=== PATIENT | male | born 1955 | race African-American/Black ===

== ENCOUNTER 2018-05-20 08:33 | Emergency (ER) | payer OTHER ==
[2018-05-20 08:50] VITALS: BP 127/65; PULSE 89; TEMP 98.1; BMI 25.8
[2018-05-20] MEDS ORDERED: ALBUTEROL SO4 2.5/IPRATROPIUM 0.5 INH SOL 3 ML VIAL.NEB. NEB ONE (09:58)
--- NOTE | 2018-05-20 10:03 | PDOC ---
History of Present Illness - General Chief Complaint: Shortness of Breath Stated Complaint: ASTHMA Time Seen by Provider: 05/20/18 09:05 History Source: Patient Exam Limitations: No Limitations - History of Present Illness Initial Comments: 05/20/18 09:59 63-year-old male with history of smoking and asthma presents to the ED for evaluation of dry hacking cough intermittent shortness of breath and wheezing since this week and worsening in severity since this a.m. Patient states has been using his inhaler with good effect until this a.m. Patient denies fever, chills, headache chest pain, or abdominal pain. Timing/Duration: reports: other Severity: reports: mild Possible Cause: Yes: occasional episodes Modifying Factors: improves with: coughing Associated Symptoms: reports: cough, shortness of breath, wheezing Past History - Travel Traveled outside of the country in the last 30 days: Yes Close contact w/someone who was outside of country & ill: No - Past Medical History Allergies/Adverse Reactions: Allergies Allergy/AdvReac Type Severity Reaction Status Date / Time Penicillins Allergy Verified 05/20/18 08:45 Home Medications: Ambulatory Orders Albuterol Sulfate Inhaler - [Ventolin Hfa Inhaler -] 1 - 2 inh PO Q4H 05/20/18 Sitagliptin Phos/Metformin HCl [Janumet 50-500 mg Tablet] 1 each PO ASDIR metFORMIN HCL [Glucophage -] 500 mg PO BID 05/20/18 Asthma: Yes Diabetes: Yes - Suicide/Smoking/Psychosocial Hx Smoking Status: Yes Smoking History: Current every day smoker Number of Cigarettes Smoked Daily: 19 Information on smoking cessation initiated: No Hx Alcohol Use: No Patient Lives Alone: No Lives with/in: spouse/SO Review of Systems - Review of Systems Able to Perform ROS?: Yes Constitutional: No: Symptoms Reported HEENTM: No: Symptoms Reported Respiratory: Yes: Cough, Shortness of Breath, Wheezing Cardiac (ROS): No: Symptoms Reported ABD/GI: No: Symptoms Reported : No: Symptoms Reported Musculoskeletal: No: Symptoms Reported Integumentary: No: Symptoms Reported Endocrine: No: Symptoms Reported Hematologic/Lymphatic: No: Symptoms Reported *Physical Exam - Vital Signs Last Vital Signs Temp Pulse Resp BP Pulse Ox 98.1 F 89 18 127/65 98 05/20/18 08:49 05/20/18 08:49 05/20/18 08:49 05/20/18 08:49 05/20/18 08:49 - Physical Exam General Appearance: Yes: Nourished, Appropriately Dressed. No: Apparent Distress HEENT: positive: EOMI, CARLOS, TMs Normal, Pharynx Normal. negative: Pale Conjunctivae Neck: positive: Supple Respiratory/Chest: positive: Wheezing (mild twin on end expiration). negative: Respiratory Distress, Accessory Muscle Use Cardiovascular: positive: Regular Rhythm, Regular Rate. negative: Murmur Gastrointestinal/Abdominal: positive: Soft. negative: Tenderness Musculoskeletal: positive: CVA Tenderness Extremity: positive: Normal Capillary Refill. negative: Pedal Edema Integumentary: positive: Normal Color, Warm, Moist Neurologic: positive: Motor Strength 5/5 (ambulatory) Moderate Sedation - Procedure Monitoring Vital Signs: Procedure Monitoring Vital Signs Temperature 98.1 F 05/20/18 08:49 Pulse Rate 89 05/20/18 08:49 Respiratory Rate 18 05/20/18 08:49 Blood Pressure 127/65 05/20/18 08:49 O2 Sat by Pulse Oximetry (%) 98 05/20/18 08:49 ED Treatment Course - RADIOLOGY Radiology Studies Ordered: Category Date Time Status CHEST PA & LAT [RAD] Stat Radiology 05/20/18 09:47 Ordered Medical Decision Making - Medical Decision Making 05/20/18 10:10 Complaint: Shortness of breath, cough and wheezing 3 days worsen this a.m. after going outside. Exam: No accessory muscle usage with mild expiratory wheezing bilateral. Vital signs stable Plan: Chest x-ray secondary to history of smoking and age. If negative will discharge home with prednisone since he has an inhaler at home. 05/20/18 10:12 X-ray negative for infiltrate and effusion. Will discharge patient home with prednisone. *DC/Admit/Observation/Transfer Diagnosis at time of Disposition: Asthma - Discharge Dispostion Disposition: HOME Condition at time of disposition: Good - Referrals - Patient Instructions Printed Discharge Instructions: DI for Asthma -- Adult Additional Instructions: Please start prednisone today. Rest carrier inhaler with urine use as needed for wheezing Drink plenty of fluids and rest. - Post Discharge Activity
== END 2018-05-20 10:47 | disposition home or self-care (01) ==
LOC: JER 08:33
PROC: 3E0F7GC Introduction of Other Therapeutic Substance into Respiratory Tract, Via Natural or Artificial Opening (ICD-10-PCS; principal; 2018-05-20)
DX: J45.909 Unspecified asthma, uncomplicated (principal); E11.9 Type 2 diabetes mellitus without complications; Z79.84 Long term (current) use of oral hypoglycemic drugs; F17.210 Nicotine dependence, cigarettes, uncomplicated
CPT/HCPCS: 71046-TC-FY; 99281-25

== ENCOUNTER 2018-07-23 15:55 | Emergency (ER) | payer OTHER ==
[2018-07-23 16:04] VITALS: BP 119/63; PULSE 87; BMI 24.3
[2018-07-23] MEDS ORDERED: ALBUTEROL SO4 2.5/IPRATROPIUM 0.5 INH SOL 3 ML VIAL.NEB. NEB ONE ×2 (16:06→16:07)
--- NOTE | 2018-07-23 16:15 | PDOC ---
Rapid Medical Evaluation Chief Complaint: Asthma Time Seen by Provider: 07/23/18 16:05 Medical Evaluation: Allergies Allergy/AdvReac Type Severity Reaction Status Date / Time Penicillins Allergy Verified 07/23/18 16:05 Vital Signs Temp Pulse Resp BP Pulse Ox 87 22 H 119/63 99 07/23/18 16:03 07/23/18 16:03 07/23/18 16:03 07/23/18 16:03 07/23/18 16:06 The patient presents with a chief complaint of: chest tightness and wheezing, using inhaler with good effect but running low I have performed a brief in-person evaluation of this patient; Pertinent physical exam findings: ambulatory, in no respiratory distress, no wheezing, mild decreased bs to right base I have ordered the following: duoneb The patient will proceed to the ED for further evaluation. Discharge Disposition - Diagnosis Asthma - Referrals - Patient Instructions - Post Discharge Activity
[2018-07-23] MEDS ORDERED: DEXAMETHASONE LIQUID 0.5 MG/5 ML 240 ML BULK BOTTLE PO ONE (16:40)
[2018-07-23] MEDS ORDERED: DEXAMETHASONE SOD PHOSPHATE 10 MG/1 ML VIAL ONE (16:42)
--- NOTE | 2018-07-23 16:52 | PDOC ---
History of Present Illness - General Chief Complaint: Asthma Stated Complaint: ASTHMA Time Seen by Provider: 07/23/18 16:05 - History of Present Illness Initial Comments: 07/23/18 16:49 63-year-old male with a past medical history of asthma presents for evaluation of exacerbation of asthma and cough over the last 2 days without systemic symptoms. Past History - Past Medical History Allergies/Adverse Reactions: Allergies Allergy/AdvReac Type Severity Reaction Status Date / Time Penicillins Allergy Verified 07/23/18 16:05 Home Medications: Ambulatory Orders Albuterol Sulfate Inhaler - [Ventolin Hfa Inhaler -] 1 - 2 inh PO Q4H 05/20/18 Sitagliptin Phos/Metformin HCl [Janumet 50-500 mg Tablet] 1 each PO ASDIR metFORMIN HCL [Glucophage -] 500 mg PO BID 05/20/18 predniSONE [Deltasone -] 40 mg PO DAILY #6 tablet 05/20/18 Asthma: Yes COPD: No Diabetes: Yes - Suicide/Smoking/Psychosocial Hx Smoking Status: Yes Smoking History: Never smoked Have you smoked in the past 12 months: No Number of Cigarettes Smoked Daily: 19 Information on smoking cessation initiated: No Hx Alcohol Use: No Drug/Substance Use Hx: No Review of Systems - Review of Systems Constitutional: No: Fever Respiratory: Yes: Cough, Wheezing *Physical Exam - Vital Signs Last Vital Signs Temp Pulse Resp BP Pulse Ox 87 22 H 119/63 99 07/23/18 16:03 07/23/18 16:03 07/23/18 16:03 07/23/18 16:03 - Physical Exam Comments: 07/23/18 16:50 HEAD: NC/AT EYES: Conjuntiva clear Ears: Canals and TM's normal NOSE: No d/c THROAT: Moist mucous membrances, oral pharanx clear, uvula midline NECK: Supple without adenopathy CARDIAC: S1 S2 LUNGS: CTA Full and Equal breath sounds ABDOMEN: Soft NT ND MS: Full ROM in all joints without edema NEUROLOGIC: No gross sensory or motor deficits, NVID SKIN: Normal color and temperature no lesions or rashes ED Treatment Course - RADIOLOGY Radiology Studies Ordered: Category Date Time Status CHEST PA & LAT [RAD] Stat Radiology 07/23/18 16:40 Ordered - Medications Given in the ED: ED Medications Discontinued Medications Generic Name Dose Route Start Last Admin Trade Name Freq PRN Reason Stop Dose Admin Albuterol/Ipratropium 1 amp 07/23/18 16:06 07/23/18 16:22 Duoneb - NEB 07/23/18 16:07 1 amp ONCE ONE Administration Dexamethasone 10 mg 07/23/18 16:40 07/23/18 16:48 Decadron Liquid - PO 07/23/18 16:41 10 mg ONCE ONE Administration Medical Decision Making - Medical Decision Making 07/23/18 16:50 There was no wheezing after the first DuoNeb. Patient was given a dose of Decadron chest x-ray show no acute pathology I will have him follow-up with pulmonology. He is a smoker we discussed smoking cessation. *DC/Admit/Observation/Transfer Diagnosis at time of Disposition: Asthma, Asthma exacerbation, Needs smoking cessation education - Discharge Dispostion Disposition: HOME Condition at time of disposition: Stable Decision to Admit order: No - Referrals Referrals: Coy Brunson MD, MD [Staff Physician] - - Patient Instructions Printed Discharge Instructions: Asthma -- Adult, How to Quit Smoking, Reasons to Quit Smoking Additional Instructions: Return to the emergency room for worsening symptoms. Please follow-up with pulmonology in one to 2 days for further evaluation and treatment options. Do your best to decrease smoking and stop smoking altogether. - Post Discharge Activity Forms/Work/School Notes: Back to Work
== END 2018-07-23 16:53 | disposition home or self-care (01) ==
LOC: JERFT 15:55
PROC: 3E0F7GC Introduction of Other Therapeutic Substance into Respiratory Tract, Via Natural or Artificial Opening (ICD-10-PCS; principal; 2018-07-23)
DX: J45.901 Unspecified asthma with (acute) exacerbation (principal); E11.9 Type 2 diabetes mellitus without complications; Z79.84 Long term (current) use of oral hypoglycemic drugs; F17.210 Nicotine dependence, cigarettes, uncomplicated; Z71.6 Tobacco abuse counseling
CPT/HCPCS: 71046-TC-FY; 99281-25